=== PATIENT | female | born 2000 | race Caucasian/White ===

== ENCOUNTER 2020-06-28 19:16 | Emergency (ER) | payer MEDICAID ==
[~2020-06-28] VITALS: Ht 167.6 cm; Wt 113.6 kg
--- NOTE | 2020-06-28 19:24 | NUR ---
Teddy Tripathi notified of patient and condition and presents immediately to bedside.
[2020-06-28 19:48] LABS: BASOPHILS # (AUTO) 0.1 X10'3 (0-0.2); BASOPHILS % (AUTO) 0.5 % (0-1); EOSINOPHILS % (AUTO) 0 % (0-6); HEMATOCRIT 46.5 % (35.0-45.0); HEMOGLOBIN 15.8 g/dl (12.0-16.0); LYMPHOCYTES # (AUTO) 4.3 X10'3 (1.1-4.8); LYMPHOCYTES % (AUTO) 31.4 % (21-51); MEAN CORPUSCULAR HEMOGLOBIN 33.9 PG (27.0-31.0); MEAN CORPUSCULAR VOLUME 99.9 FL (78-98); MEAN PLATELET VOLUME 9.2 FL (7.4-10.4); MONOCYTES # (AUTO) 0.7 X10'3 (0-0.9); MONOCYTES % (AUTO) 4.7 % (2-12); NEUTROPHILS # (AUTO) 8.7 X10'3 (1.8-7.7); NEUTROPHILS % (AUTO) 63.4 % (42-75); PLATELET COUNT 426 X10'3 (140-440); RED BLOOD COUNT 4.66 X10'6 (4.20-5.60); RED CELL DISTRIBUTION WIDTH 12.8 % (11.5-14.5); WHITE BLOOD COUNT 13.8 X10'3 (4.5-11.0)
--- NOTE | 2020-06-28 19:55 | NUR ---
Patient returns from CT and x-ray
[2020-06-28 19:57] LABS: ALANINE AMINOTRANSFERASE 59 U/L (12-78); ALBUMIN 4.6 G/DL (3.4-5.0); ALKALINE PHOSPHATASE 115 IU/L (20-180); ANION GAP 24 (8-16); ASPARTATE AMINO TRANSFERASE 20 U/L (10-37); BILIRUBIN,TOTAL 0.3 MG/DL (0.1-1.0); BLOOD UREA NITROGEN 8 MG/DL (7-18); BUN/CREATININE RATIO 6.6 (6.6-38.0); CALCIUM 9.7 MG/DL (8.5-10.1); CHLORIDE 101 MMOL/L (99-107); CREATININE 1.22 MG/DL (0.40-0.90); ETHANOL 0.145 GM/DL (0.0-0.010); GLUCOSE 137 MG/DL (70-104); POTASSIUM 3.7 MMOL/L (3.5-5.1); SODIUM 141 MMOL/L (135-145); TOTAL CARBON DIOXIDE 15.8 MMOL/L (24-32); TOTAL PROTEIN 9.1 G/DL (6.4-8.2); eGFR 57 ML/MIN
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
[2020-06-28 23:21] VITALS: BP 152/92
== END 2020-06-28 22:10 | disposition home or self-care (01) ==
LOC: ER 19:17
DX: S01.01XA Laceration without foreign body of scalp, initial encounter (principal); S50.312A Abrasion of left elbow, initial encounter; S50.311A Abrasion of right elbow, initial encounter; X58.XXXA Exposure to other specified factors, initial encounter; Y93.89 Activity, other specified; Y92.89 Other specified places as the place of occurrence of the external cause; Y99.8 Other external cause status; Y09 Assault by unspecified means
CPT/HCPCS: 12002; 29505; 36415; 70450; 70486; 71045; 72125; 80053; 80320; 85025; 86885; 86900; 86901; 99285

== ENCOUNTER 2020-07-04 12:40 | Emergency (ER) | payer MEDICAID ==
[~2020-07-04] VITALS: Ht 167.6 cm; Wt 113.0 kg
[2020-07-04 13:03] VITALS: BP 167/103
== END 2020-07-04 13:13 | disposition home or self-care (01) ==
LOC: ER 12:41
DX: S01.01XD Laceration without foreign body of scalp, subsequent encounter (principal); Y08.89XD Assault by other specified means, subsequent encounter
CPT/HCPCS: 99281